=== PATIENT | female | born 1960 | race African-American/Black ===

== ENCOUNTER 2018-06-24 05:50 | Day surgery (SDC) | payer MEDICAID ==
[~2018-06-24] VITALS: Ht 157.5 cm; Wt 85.0 kg
[2018-06-24] MEDS ORDERED: LIDOCAINE/PF 2% 5 ML VIAL IM ONE (05:51)
[2018-06-24] MEDS ORDERED: PROPOFOL 1% 20 ML VIAL IVP ONE (05:51)
[2018-06-24] MEDS ORDERED: SODIUM CHLORIDE 0.9% 1,000 ML IV ONE (05:59)
[2018-06-24] MEDS: SODIUM CHLORIDE 0.9% 1,000 ML IV ONE (06:47)
[2018-06-24] MEDS ORDERED: FentaNYL CITRATE-PF 100 MCG/2 ML VIAL ONE (07:22)
[2018-06-24] MEDS ORDERED: MIDAZOLAM HCL 5 MG/ML VIAL ONE (07:22)
== END 2018-06-24 09:10 | disposition home or self-care (01) ==
LOC: SURGERY 05:50
PROVIDERS: ATTEND Student in an Organized Health Care Education/Training Program
DX: K64.4 Residual hemorrhoidal skin tags (principal); K64.8 Other hemorrhoids; I11.0 Hypertensive heart disease with heart failure; I50.9 Heart failure, unspecified; E03.9 Hypothyroidism, unspecified; E66.9 Obesity, unspecified; M19.90 Unspecified osteoarthritis, unspecified site; I42.9 Cardiomyopathy, unspecified; Z85.3 Personal history of malignant neoplasm of breast; Z90.710 Acquired absence of both cervix and uterus; Z98.890 Other specified postprocedural states; Z79.899 Other long term (current) drug therapy; Z80.0 Family history of malignant neoplasm of digestive organs
CPT/HCPCS: 45378; J2704; J3490; J7030; J2250; J3010